=== PATIENT | male | born 1980 | race Caucasian/White ===

== ENCOUNTER 2017-05-07 22:36 | Emergency (ER) | payer MEDICAID ==
[~2017-05-07] VITALS: Ht 182.9 cm; Wt 84.8 kg
[~2017-05-07 22:36] MED LIST: KEFLEX 500MG.500 MG PO; KEFLEX500 M1 PO; SEPTRA DS 800 M1 TAB PO
--- OUTSIDE RECORDS SUMMARY | 2017-05-07 22:54 | External Medical Summary Rpt | CCD ---
Author Author , ENOC STUBBS Address Unknown Phone [email or web address] Team Providers Care Communication Analyst Name Role Phone VAUGHAN ALL, VAUGHAN ALL Unavailable Unavailable [facility], Unavailable Unavailable [facility] DEPT FOR PUBLIC HLTH, Unavailable Unavailable [facility] FOR PUBLIC [facility]PT FOR SOCIAL SR[facility], Unavailable Unavailable DE[facility] FOR SOCIAL [facility] NELSON DEAN Unavailable Unavailable [facility] Unavailable Unavailable [facility] Radha Damon MD, Unavailable Unavailable Radha Damon MD [facility] SALESPERSON Unavailable Unavailable [facility] BURIAL NEEDS SALESPERSON [facility], Unavailable Unavailable PLLC, [facility] Unavailable Unavailable SE, [facility] ALLIED Unavailable Unavailable [facility], [facility] RENUSCH JUDE, RENUSCH Unavailable Unavailable JUDE Purpose Continuity of Care Document - 05-30-2009 through 2016 Problems Code Diagnosis DOS Provider Status Z681 BODY MASS 02-09-2017 DEPT FOR INDEX 19.9 PUBLIC HLTH OR LESS ADULT [id number] SUPERFICIAL 05-05-2016 APRIL FB RT RING PHYSICIANS, FINGER PLLC INITIAL 7295 PAIN IN 03-02-2015 [place] SOFT MEDICAL TISSUES OF IMAGING ASS LIMB 45160 SPRAIN AND 03-02-2015 APRIL STRAIN OF PHYSICIANS, UNSPECIFIED PLLC SITE OF HAND 9594 INJURY 03-02-2015 [place] OTHER AND MEDICAL UNSPECIFIED IMAGING ASS HAND EXCEPT FINGER V154 PERS HX 11-09-2014 DEPT FOR PSYCHOLOGIC PUBLIC HLTH AL TRAUMA PRS [facility] 61004 11-06-2014 [place] ALLIED [facility] 881.00 881.00 OPEN 12-12-2012 Tong WOUND OF [facility] E849.0 E849.0 12-12-2012 Tong ACCIDENT IN [facility] E917.9 E917.9 12-12-2012 Tong STRUCK BY [facility] NEC V06.5 V06.5 12-12-[address]ETANUS-DIP [facility] [TD][DT] Allergies, Adverse Reactions, Alerts Type Allergy to substance Adverse Reaction to Substance Substance Reaction Severity NO KNOWN ALLERGIES Unknown Unknown Medications Na ND Rx Da Fi Fi Am Da Di Ph RX Ph St me C No te ll ll ou ys ag ar # ys at rm s nt no ma ic us Or Da si cy ia de te s n re d AD 49 06 0 No AC 28 -0 EL 10 3- Lo 40 20 ng TD 01 13 er AP 0 Ac ti AL ve CE 62 06 0 No PH 75 -0 AL 60 3- Lo EX 29 20 ng IN 48 13 er 8 50 Ac 0 ti MG ve CA PS UL E MORAN 51 06 0 No LF 07 -0 AM 90 3- Lo ET 12 20 ng HO 82 13 er XA 0 ZO Ac LE ti -T ve MP DS TA BL ET TR 00 06 0 No AM 09 -0 AD 30 3- Lo OL 05 20 ng 80 13 er 50 1H MG Ac ti TA ve BL ET TA KE HO ME 00 11 11 [address] Ac 59 -1 -1 .0 YS 03 PE ti 10 1- 9- 00 25 HE ve 38 20 20 LL 3 NS 70 09 09 E 5 OB DO /G UG YN LA S FA KD MA MD LY HE AL TH Vital Signs 12-12-2012 22:52 Name Value Interpretat Reference Comment ion Range BP 77 mm[Hg] Diastolic BP Systolic 131 mm[Hg] Heart 84 /min Rate/Pulse O2% 98 % Respiratory 16 /min Rate 12-12-2012 22:46 Name Value Interpretat Reference Comment ion Range BP 81 mm[Hg] Diastolic BP Systolic 125 mm[Hg] Heart 99 /min Rate/Pulse O2% 97 % Respiratory 20 /min Rate Procedures Procedure DOS Code Location Performer Comment RADEX 56346 [place] VAUGHAN ALL HAND 5 MEDICAL MINIMUM 3 IMAGING VIEWS ASS NONEMERG A0120 [place] [facility] TRNSPRT: 5 ALLIED KUSH D [facility] COMSERVIC COM SE MTN ES AREA/OTH SYS NONEMERG A0120 [place] TRNSPRT: 5 ALLIED K[facility] D MINI-BUS COMSERVIC COM SE MTN ES AREA/OTH SYS NONEMERG A0120 [place] TRNSPRT: 5 ALLIED K[facility] D MINI-BUS COMSERVIC COM SE MTN ES AREA/OTH SYS NONEMERG A0120 [place] TRNSPRT: 5 ALLIED KUSH D MINI-BUS COMSERVIC COM SE MTN ES AREA/OTH SYS NONEMERG A0120 [place] TRNSPRT: 5 ALLIED KUSH D MINI-BUS COMSERVIC COM SE MTN ES AREA/OTH SYS NONEMERG A0120 [place] TRNSPRT: 5 ALLIED KUSH D MINI-BUS COMSERVIC COM SE MTN ES AREA/OTH SYS NONEMERG A0120 [place] TRNSPRT: 5 ALLIED KUSH D MINI-BUS COMSERVIC COM SE MTN ES AREA/OTH SYS NONEMERG A0120 [place] TRNSPRT: 5 ALLIED KUSH D MINI-BUS COMSERVIC COM SE MTN ES AREA/OTH SYS NONEMERG A0120 [place] TRNSPRT: 5 ALLIED KUSH D MINI-BUS COMSERVIC COM SE MTN ES AREA/OTH SYS NONEMERG A0120 [place] TRNSPRT: 4 ALLIED KUSH D MINI-BUS COMSERVIC COM SE MTN ES AREA/OTH SYS NONEMERG A0120 [place] TRNSPRT: 4 ALLIED KSUH D MINI-BUS COMSERVIC COM SE MTN ES AREA/OTH SYS NONEMERG A0120 [place] TRNSPRT: 4 ALLIED KUSH D MINI-BUS COMSERVIC COM SE MTN ES AREA/OTH SYS NONEMERG A0120 [place] TRNSPRT: 4 ALLIED KUSH D MINI-BUS COMSERVIC COM SE MTN ES AREA/OTH SYS NONEMERG A0120 [place] TRNSPRT: 4 ALLIED KUSH D MINI-BUS COMSERVIC COM SE MTN ES AREA/OTH SYS NONEMERG A0120 [place] TRNSPRT: 4 ALLIED KUSH D MINI-BUS COMSERVIC COM SE MTN ES AREA/OTH SYS NONEMERG A0120 [place] TRNSPRT: 4 ALLIED KUSH D MINI-BUS COMSERVIC COM SE MTN ES AREA/OTH SYS NONEMERG A0120 [place] TRNSPRT: 4 ALLIED KUSH D MINI-BUS COMSERVIC COM SE MTN ES AREA/OTH SYS NONEMERG A0120 [place] TRNSPRT: 4 ALLIED KUSH D MINI-BUS COMSERVIC COM SE MTN ES AREA/OTH SYS NONEMERG A0120 [place] TRNSPRT: 4 ALLIED KUSH D MINI-BUS COMSERVIC COM SE MTN ES AREA/OTH SYS NONEMERG A0120 [place] TRNSPRT: 4 ALLIED KUSH D MINI-BUS COMSERVIC COM SE MTN ES AREA/OTH SYS NONEMERG A0120 [place] TRNSPRT: 4 ALLIED KUSH D MINI-BUS COMSERVIC COM SE MTN ES AREA/OTH SYS NONEMERG A0120 [place] TRNSPRT: 4 ALLIED KUSH D MINI-BUS COMSERVIC COM SE MTN ES AREA/OTH SYS NONEMERG A0120 [place] TRNSPRT: 4 ALLIED KUSH D MINI-BUS COMSERVIC COM SE MTN ES AREA/OTH SYS NONEMERG A0120 [place] TRNSPRT: 4 ALLIED KUSH D MINI-BUS COMSERVIC COM SE MTN ES AREA/OTH SYS NONEMERG A0120 [place] TRNSPRT: 4 ALLIED KUSH D MINI-BUS COMSERVIC COM SE MTN ES AREA/OTH SYS NONEMERG A0120 [place] [facility] TRNSPRT: 4 ALLIED KUSH D MINI-BUS COMSERVIC COM SE MTN ES AREA/OTH SYS NONEMERG A0120 [place] TRNSPRT: 4 ALLIED KUSH D MINI-BUS COMSERVIC COM SE MTN ES AREA/OTH SYS NONEMERG A0120 [place] TRNSPRT: 4 ALLIED KUSH D MINI-BUS COMSERVIC COM SE MTN ES AREA/OTH SYS NONEMERG A0120 [place] [facility] TRNSPRT: 4 ALLIED ALLIED MINI-BUS COMSERVIC COMSERVIC MTN ES ES AREA/OTH SYS NONEMERG A0120 [place] TRNSPRT: 4 ALLIED ALLIED MINI-BUS COMSERVIC COMSERVIC MTN ES ES AREA/OTH SYS NONEMERG A0120 [place] TRNSPRT: 4 ALLIED ALLIED MINI-BUS COMSERVIC COMSERVIC MTN ES ES AREA/OTH SYS NONEMERG A0120 [place] TRNSPRT: 4 ALLIED ALLIED MINI-BUS COMSERVIC COMSERVIC MTN ES ES AREA/OTH SYS NONEMERG A0120 [place] [facility] TRNSPRT: 4 ALLIED ALLIED MINI-BUS COMSERVIC COMSERVIC MTN ES ES AREA/OTH SYS NONEMERG A0120 [place] [facility] TRNSPRT: 4 ALLIED ALLIED MINI-BUS COMSERVIC COMSERVIC MTN ES ES AREA/OTH SYS NONEMERG A0120 [place] [facility] TRNSPRT: 4 ALLIED ALLIED MIN[facility]-BUS COMSERVIC COMSERVIC MTN ES ES AREA/OTH SYS NONEMERG A0120 [place] [facility] TRNSPRT: 3 ALLIED ALLIED MINI-BUS COMSERVIC COMSERVIC MTN ES ES AREA/OTH SYS NONEMERG A0120 [place] [facility] TRNSPRT: 3 ALLIED ALLIED MINI-BUS COMSERVIC COMSERVIC MTN ES ES AREA/OTH SYS NONEMERG A0120 [place] TRNSPRT: 3 ALLIED ALLIED MINI-BUS COMSERVIC COMSERVIC MTN ES ES AREA/OTH SYS NONEMERG A0120 [place] TRNSPRT: 3 ALLIED ALLIED MINI-BUS COMSERVIC COMSERVIC MTN ES ES AREA/OTH SYS NONEMERG A0120 [place] TRNSPRT: 3 ALLIED ALLIED MINI-BUS COMSERVIC COMSERVIC MTN ES ES AREA/OTH SYS NONEMERG A0120 [place] TRNSPRT: 3 ALLIED ALLIED MINI-BUS COMSERVIC COMSERVIC MTN ES ES AREA/OTH SYS NONEMERG A0120 [place] TRNSPRT: 3 ALLIED ALLIED MINI-BUS COMSERVIC COMSERVIC MTN ES ES AREA/OTH SYS NONEMERG A0120 [place] TRNSPRT: 3 ALLIED ALLIED MINI-BUS COMSERVIC COMSERVIC MTN ES ES AREA/OTH SYS NONEMERG A0120 [place] TRNSPRT: 3 ALLIED ALLIED MINI-BUS COMSERVIC COMSERVIC MTN ES ES AREA/OTH SYS NONEMERG A0120 [place] TRNSPRT: 3 ALLIED ALLIED MINI-BUS COMSERVIC COMSERVIC MTN ES ES AREA/OTH SYS NONEMERG A0120 [place] TRNSPRT: 3 ALLIED ALLIED MINI-BUS COMSERVIC COMSERVIC MTN ES ES AREA/OTH SYS NONEMERG A0120 [place] TRNSPRT: 3 ALLIED ALLIED MINI-BUS COMSERVIC COMSERVIC MTN ES ES AREA/OTH SYS NONEMERG A0120 [place] TRNSPRT: 3 ALLIED ALLIED MINI-BUS COMSERVIC COMSERVIC MTN ES ES AREA/OTH SYS NONEMERG A0120 [place] TRNSPRT: 3 ALLIED ALLIED MINI-BUS COMSERVIC COMSERVIC MTN ES ES AREA/OTH SYS NONEMERG A0120 [place] TRNSPRT: 3 ALLIED ALLIED MINI-BUS COMSERVIC COMSERVIC MTN ES ES AREA/OTH SYS NONEMERG A0120 [place] TRNSPRT: 3 ALLIED ALLIED MINI-BUS COMSERVIC COMSERVIC MTN ES ES AREA/OTH SYS NONEMERG A0120 [place] TRNSPRT: 3 ALLIED ALLIED MINI-BUS COMSERVIC COMSERVIC MTN ES ES AREA/OTH SYS NONEMERG A0120 [place] TRNSPRT: 3 ALLIED ALLIED MINI-BUS COMSERVIC COMSERVIC MTN ES ES AREA/OTH SYS NONEMERG A0120 [place] TRNSPRT: 3 ALLIED ALLIED MINI-BUS COMSERVIC COMSERVIC MTN ES ES AREA/OTH SYS NONEMERG A0120 [place] TRNSPRT: 3 ALLIED ALLIED MINI-BUS COMSERVIC COMSERVIC MTN ES ES AREA/OTH SYS NONEMERG A0120 [place] TRNSPRT: 3 ALLIED ALLIED MINI-BUS COMSERVIC COMSERVIC MTN ES ES AREA/OTH SYS NONEMERG A0120 [place] TRNSPRT: 3 ALLIED ALLIED MINI-BUS COMSERVIC COMSERVIC MTN ES ES AREA/OTH SYS NONEMERGE A0100 [place] [facility] NCY 3 ALLIED ALLIED TRANSPORT COMSERVIC COMSERVIC ATION; ES ES TAXI NONEMERGE A0100 [place] NCY 3 ALLIED ALLIED TRANSPORT COMSERVIC COMSERVIC ATION; ES ES TAXI NONEMERG A0120 [place] TRNSPRT: 3 ALLIED ALLIED MINI-BUS COMSERVIC COMSERVIC MTN ES ES AREA/OTH SYS NONEMERG A0120 [place] TRNSPRT: 2 ALLIED ALLIED MINI-BUS COMSERVIC COMSERVIC MTN ES ES AREA/OTH SYS NONEMERG A0120 [place] TRNSPRT: 2 ALLIED ALLIED MINI-BUS COMSERVIC COMSERVIC MTN ES ES AREA/OTH SYS NONEMERG A0120 [place] TRNSPRT: 2 ALLIED ALLIED MINI-BUS COMSERVIC COMSERVIC MTN ES ES AREA/OTH SYS NONEMERG A0120 [place] TRNSPRT: 2 ALLIED ALLIED MINI-BUS COMSERVIC COMSERVIC MTN ES ES AREA/OTH SYS NONEMERGE A0100 [place] NCY 2 ALLIED ALLIED TRANSPORT COMSERVIC COMSERVIC ATION; ES ES TAXI NONEMERG A0120 [place] TRNSPRT: 2 ALLIED ALLIED MINI-BUS COMSERVIC COMSERVIC MTN ES ES AREA/OTH SYS NONEMERGE A0100 [place] NCY 2 ALLIED ALLIED TRANSPORT COMSERVIC COMSERVIC ATION; ES ES TAXI NONEMERGE A0100 [place] NCY 2 ALLIED ALLIED TRANSPORT COMSERVIC COMSERVIC ATION; ES ES TAXI NONEMERG A0120 [place] [facility] TRNSPRT: 2 ALLIED ALLIED MINI-BUS COMSERVIC COMSERVIC MTN ES ES AREA/OTH SYS NONEMERG A0120 [place] TRNSPRT: 2 ALLIED ALLIED MINI-BUS COMSERVIC COMSERVIC MTN ES ES AREA/OTH SYS NONEMERG A0120 [place] TRNSPRT: 2 ALLIED ALLIED MINI-BUS COMSERVIC COMSERVIC MTN ES ES AREA/OTH SYS NONEMERG A0120 [place] TRNSPRT: 2 ALLIED ALLIED MINI-BUS COMSERVIC COMSERVIC MTN ES ES AREA/OTH SYS NONEMERG A0120 [place] TRNSPRT: 2 ALLIED ALLIED MINI-BUS COMSERVIC COMSERVIC MTN ES ES AREA/OTH SYS NONEMERG A0120 [place] TRNSPRT: 2 ALLIED ALLIED MINI-BUS COMSERVIC COMSERVIC MTN ES ES AREA/OTH SYS NONEMERGE A0100 [place] [facility] NCY 2 ALLIED ALLIED TRANSPORT COMSERVIC COMSERVIC ATION; ES ES TAXI NONEMERG A0120 [place] [facility] TRNSPRT: 2 ALLIED ALLIED MINI-BUS COMSERVIC COMSERVIC MTN ES ES AREA/OTH SYS NONEMERGE A0100 [place] [facility] NCY 2 ALLIED ALLIED TRANSPORT COMSERVIC COMSERVIC ATION; ES ES TAXI NONEMERG A0120 [place] TRNSPRT: 2 ALLIED ALLIED MINI-BUS COMSERVIC COMSERVIC MTN ES ES AREA/OTH SYS NONEMERG A0120 [place] TRNSPRT: 1 ALLIED KUSH D MINI-BUS COMSERVIC COM SE MTN ES AREA/OTH SYS NONEMERGE A0100 [place] JONO NCY 1 ALLIED MEDIC CAB TRANSPORT COMSERVIC ATION; ES TAXI NONEMERG A0120 [place] TRNSPRT: 1 ALLIED KUSH D MINI-BUS COMSERVIC COM SE MTN ES AREA/OTH SYS NONEMERG A0120 [place] TRNSPRT: 1 ALLIED KUSH D MINI-BUS COMSERVIC COM SE MTN ES AREA/OTH SYS NONEMERG A0120 [place] TRNSPRT: 1 ALLIED KUSH D MINI-BUS COMSERVIC COM SE MTN ES AREA/OTH SYS NONEMERGE A0100 [place] JONO NCY 1 ALLIED MEDIC CAB TRANSPORT COMSERVIC ATION; ES TAXI NONEMERG A0120 [place] TRNSPRT: 1 ALLIED KUSH D MINI-BUS COMSERVIC COM SE MTN ES AREA/OTH SYS NONEMERGE A0100 [place] JONO NCY 1 ALLIED MEDIC CAB TRANSPORT COMSERVIC ATION; ES TAXI NONEMERG A0120 [place] TRNSPRT: 1 ALLIED KUSH D MINI-BUS COMSERVIC COM SE MTN ES AREA/OTH SYS NONEMERG A0120 [place] TRNSPRT: 1 ALLIED KUSH D MINI-BUS COMSERVIC COM SE MTN ES AREA/OTH SYS NONEMERG A0120 [place] TRNSPRT: 1 ALLIED KUSH D MINI-BUS COMSERVIC COM SE MTN ES AREA/OTH SYS NONEMERG A0120 [place] TRNSPRT: 1 ALLIED K[facility] D MINI-BUS COMSERVIC COM SE MTN ES AREA/OTH SYS NONEMERG A0120 [place] TRNSPRT: 1 ALLIED KUSH D MINI-BUS COMSERVIC COM SE MTN ES AREA/OTH SYS NONEMERGE A0100 [place] JONO NCY 1 ALLIED MEDIC CAB TRANSPORT COMSERVIC ATION; ES TAXI NONEMERG A0120 [place] TRNSPRT: 1 ALLIED KUSH D MINI-BUS COMSERVIC COM SE MTN ES AREA/OTH SYS NONEMERG A0120 [place] TRNSPRT: 1 ALLIED KUSH D MINI-BUS COMSERVIC COM SE MTN ES AREA/OTH SYS NONEMERG A0120 [place] TRNSPRT: 1 ALLIED KUSH D MINI-BUS COMSERVIC COM SE MTN ES AREA/OTH SYS NONEMERG A0120 [place] TRNSPRT: 1 ALLIED KUSH D MINI-BUS COMSERVIC COM SE MTN ES AREA/OTH SYS NONEMERG A0120 [place] TRNSPRT: 1 ALLIED KUSH D MINI-BUS COMSERVIC COM SE MTN ES AREA/OTH SYS NONEMERGE A0100 [place] JONO NCY 1 ALLIED MEDIC CAB TRANSPORT COMSERVIC ATION; ES TAXI NONEMERG A0120 [place] TRNSPRT: 1 ALLIED KUSH D MINI-BUS COMSERVIC COM SE MTN ES AREA/OTH SYS NONEMERG A0120 [place] TRNSPRT: 1 ALLIED KUSH D MINI-BUS COMSERVIC COM SE MTN ES AREA/OTH SYS NONEMERG A0120 [place] TRNSPRT: 1 ALLIED KUSH D MINI-BUS COMSERVIC COM SE MTN ES AREA/OTH SYS NONEMERG A0120 [place] TRNSPRT: 1 ALLIED KUSH D MINI-BUS COMSERVIC COM SE MTN ES AREA/OTH SYS NONEMERG A0120 [place] TRNSPRT: 1 ALLIED KUSH D MINI-BUS COMSERVIC COM SE MTN ES AREA/OTH SYS NONEMERGE A0100 [place] JONO NCY 1 ALLIED MEDIC CAB TRANSPORT COMSERVIC ATION; ES TAXI NONEMERGE A0100 [place] JONO NCY 1 ALLIED MEDIC CAB TRANSPORT COMSERVIC ATION; ES TAXI NONEMERGE A0100 [place] JONO NCY 1 ALLIED MEDIC CAB TRANSPORT COMSERVIC ATION; ES TAXI NONEMERG A0120 [place] TRNSPRT: 1 ALLIED KUSH D MINI-BUS COMSERVIC COM SE MTN ES AREA/OTH SYS NONEMERG A0120 [place] TRNSPRT: 1 ALLIED K[facility] D MINI-BUS COMSERVIC COM SE MTN ES AREA/OTH SYS NONEMERGE A0100 [place] JONO NCY 1 ALLIED MEDIC CAB TRANSPORT COMSERVIC ATION; ES TAXI NONEMERGE A0100 [place] JONO NCY 1 ALLIED MEDIC CAB TRANSPORT COMSERVIC ATION; ES TAXI NONEMERG A0120 [place] [facility] TRNSPRT: 1 ALLIED KUSH D MINI-BUS COMSERVIC COM SE MTN ES AREA/OTH SYS NONEMERG A0120 [place] TRNSPRT: 1 ALLIED KUSH D MINI-BUS COMSERVIC COM SE MTN ES AREA/OTH SYS NONEMERG A0120 [place] TRNSPRT: 1 ALLIED KUSH D MINI-BUS COMSERVIC COM SE MTN ES AREA/OTH SYS NONEMERG A0120 [place] TRNSPRT: 1 ALLIED KUSH D MINI-BUS COMSERVIC COM SE MTN ES AREA/OTH SYS NONEMERG A0120 [place] TRNSPRT: 1 ALLIED KUSH D MINI-BUS COMSERVIC COM SE MTN ES AREA/OTH SYS NONEMERG A0120 [place] TRNSPRT: 1 ALLIED KUSH D MINI-BUS COMSERVIC COM SE MTN ES AREA/OTH SYS NONEMERGE A0100 [place] JONO NCY 1 ALLIED MEDIC CAB TRANSPORT COMSERVIC ATION; ES TAXI NONEMERG A0120 [place] TRNSPRT: 1 ALLIED KUSH D MINI-BUS COMSERVIC COM SE MTN ES AREA/OTH SYS NONEMERG A0120 [place] TRNSPRT: 1 ALLIED KUSH D MINI-BUS COMSERVIC COM SE MTN ES AREA/OTH SYS NONEMERG A0120 [place] TRNSPRT: 1 ALLIED KUSH D MINI-BUS COMSERVIC COM SE MTN ES AREA/OTH SYS NONEMERG A0120 [place] TRNSPRT: 1 ALLIED KUSH D MINI-BUS COMSERVIC COM SE MTN ES AREA/OTH SYS NONEMERG A0120 [place] TRNSPRT: 0 ALLIED KUSH D MINI-BUS COMSERVIC COM SE MTN ES AREA/OTH SYS NONEMERG A0120 [place] TRNSPRT: 0 ALLIED KUSH D MINI-BUS COMSERVIC COM SE MTN ES AREA/OTH SYS NONEMERG A0120 [place] TRNSPRT: 0 ALLIED KUSH D MINI-BUS COMSERVIC COM SE MTN ES AREA/OTH SYS NONEMERG A0120 [place] TRNSPRT: 0 ALLIED KUSH D MINI-BUS COMSERVIC COM SE MTN ES AREA/OTH SYS NONEMERG A0120 [place] TRNSPRT: 0 ALLIED KUSH D MINI-BUS COMSERVIC COM SE MTN ES AREA/OTH SYS NONEMERG A0120 [place] TRNSPRT: 0 ALLIED KUSH D MINI-BUS COMSERVIC COM SE MTN ES AREA/OTH SYS NONEMERG A0120 [place] TRNSPRT: 0 ALLIED KUSH D MINI-BUS COMSERVIC COM SE MTN ES AREA/OTH SYS NONEMERGE A0100 [place] JONO NCY 0 ALLIED MEDIC CAB TRANSPORT COMSERVIC ATION; ES TAXI Encounters Encounter Start End Date Code Location Performer Type Date EMERGENCY 79995 APRIL HART 6 6 PHYSICIAN RUTH CROWLEY T VISIT MODERATE SEVERITY EMERGENCY 82780 APRIL DAMON 5 5 PHYSICIAN RUTH SCOTT T VISIT MODERATE SEVERITY Emergency LISANDRO Damon MD (ER) 3 22:15 3 22:55 [facility]
--- OUTSIDE RECORDS SUMMARY | 2017-05-07 22:54 | External Medical Summary Rpt | CCD ---
Author Author , ENOC STUBBS Address Unknown Phone [email or web address] Care Team Providers Care Payroll Technician Name Role Phone VAUGHAN ALL, VAUGHAN ALL Unavailable Unavailable [facility], Unavailable Unavailable [facility] DEPT FOR PUBLIC HLTH, Unavailable Unavailable DEPT FOR PUBLIC HLTH DEPT FOR SOCIAL SRVS, Unavailable Unavailable [facility]PT FOR SOCIAL [facility] NELSON DEAN Unavailable Unavailable [facility] Unavailable Unavailable [facility] Radha Damon MD, Unavailable Unavailable Radha Daomn MD [place] [facility]LE[facility] EQUIPMENT OPERATOR Unavailable Unavailable [facility] TELEVISION EQUIPMENT OPERATOR [facility], Unavailable Unavailable PLL[facility], [facility] Unavailable Unavailable SE, [facility] ALL[facility] Unavailable Unavailable [facility], [facility] RENUSCH JUDE, RENUSCH Unavailable Unavailable JUDE Purpose Continuity of Care Document - 05-30-2009 through 2016 Problems Code Diagnosis DOS Provider Status Z681 BODY MASS 02-09-2017 DEPT FOR INDEX 19.9 PUBLIC HLTH OR LESS ADULT [id number] SUPERFICIAL 05-05-2016 APRIL FB RT RING PHYSICIANS, FINGER PLLC INITIAL 7295 PAIN IN 03-02-2015 [facility] SOFT MEDICAL TISSUES OF IMAGING ASS LIMB 31049 SPRAIN AND 03-02-2015 APRIL STRAIN OF PHYSICIANS, UNSPECIFIED PLLC SITE OF HAND 9594 INJURY 03-02-2015 [facility] OTHER AND MEDICAL UNSPECIFIED IMAGING ASS HAND EXCEPT FINGER V154 PERS HX 11-09-2014 DEPT FOR PSYCHOLOGIC PUBLIC HLTH AL TRAUMA PRS [facility] 51133 11-06-2014 [place] ALL[facility] 881.00 881.00 OPEN 12-12-2012 Tong WOUND OF [facility] E849.0 E849.0 12-12-2012 Tong ACCIDENT IN [facility] E917.9 E917.9 12-12-2012 Tong STRUCK BY [facility] NEC V06.5 V06.5 12-12-2012 Tong TETANUS-DIP [facility] [TD][DT] Allergies, Adverse Reactions, Alerts Type [...] /G UG YN LA S FA KD MO MD LY HE AL TH Vital Signs [...] Procedure DOS Code Location Performer Comment RADEX 77314 MAINE VAUGHAN ALL HAND 5 MEDICAL MINIMUM 3 [...] NONEMERG A0120 [place] TRNSPRT: 4 ALLIED [facility] D MINI-BUS COMSERVIC COM SE MTN ES [...] NONEMERG A0120 [place] TRNSPRT: 1 ALLIED [facility] D MINI-BUS COMSERVIC COM SE MTN ES [...] Date Code Location Performer Type Date EMERGENCY 71784 APRIL HART 6 6 PHYSICIAN RUTH CROWLEY T VISIT MODERATE SEVERITY EMERGENCY 31820 APRIL DAMON 5 5 PHYSICIAN RUTH SCOTT T VISIT MODERATE SEVERITY Emergency LISANDRO Damon MD (ER) 3 22:15 3 22:55 [facility]
--- OUTSIDE RECORDS SUMMARY | 2017-05-07 22:55 | External Medical Summary Rpt | CCD ---
Author Author , ENOC STUBBS Address Unknown Phone .[facility] Care Team Providers Care Dough Molder Name Role Phone VAUGHAN ALL, VAUGHAN ALL Unavailable Unavailable [facility], Unavailable [facility]available [facility] DEPT FOR PUBLIC HLTH, Unavailable Unavailable DEPT FOR PUBLIC HLTH DEPT FOR SOCIAL SRVS, Unavailable Unavailable [facility]IAL [facility] NELSON ROBYN, NELSON Unavailable Unavailable [facility] Unavailable Unavailable [facility] [employer] PULLER Unavailable Unavailable [facility], [facility], Unavailable [facility]available [facility], [facility] Unavailable Unavailable SE, [facility] Unavailable Unavailable [facility], [facility] RENUSCH JUDE, RENUSCH Unavailable Unavailable JUDE Purpose Continuity of Care Document - 05-30-2009 through 2016 Problems Code Diagnosis DOS Provider Status Z681 BODY MASS 02-09-2017 DEPT FOR INDEX 19.9 PUBLIC HLTH OR LESS ADULT [id number] SUPERFICIAL 05-05-2016 [facility] FB RT RING [facility], FINGER [facility] INITIAL 7295 PAIN IN 03-02-2015 [place] TISSU[facility] OF IMAGING ASS LIMB 36261 SPRAIN AND 03-02-2015 [facility] STRAIN OF PHYSIC[facility]ANS, UNSPECIFIED PLLC SITE OF HAND 9594 INJURY 03-02-2015 [place] OTHER AND MEDICAL UNSPECIFIED IMAGING ASS HAND EXCEPT FINGER V154 PERS HX 11-09-2014 [facility] AL TRAUMA PRS [facility] 65421 11-06-2014 [facility] Medications Na ND Rx Da Fi Fi Am Da Di Ph RX Ph St me C No te ll ll ou ys ag ar # ys at rm s nt no ma ic us Or Da si cy ia de te s n re d 00 11 11 [address] Ac 59 -1 -1 .0 YS 03 PE ti 10 9- 00 25 HE ve 38 20 20 LL 3 NS 70 09 09 E 5 OB DO /G UG YN LA S FA KD ME LY HE AL TH Procedures Procedure DOS Code Location Performer Comment RADEX 12017 [place] VAU[facility]AN ALL HAND 5 MEDICAL MINIMUM 3 [...] NONEMERG A0120 [facility] PEN[facility]LE TRNSPRT: 5 ALLIED [facility] SE MTN ES [...] Date Code Location Performer Type Date EMERGENCY 57540 APRIL HEBERT 6 6 PHYSICIAN [place] VISIT MODERATE SEVERITY EMERGENCY 46571 APRIL DAMON 5 5 PHYSICIAN RUTH SCOTT T VISIT MODERATE SEVERITY
--- OUTSIDE RECORDS SUMMARY | 2017-05-07 22:55 | External Medical Summary Rpt | CCD ---
Author Author , [employer] STUBBS Address Unknown Phone [email or web address] [email or web address] Care Account [facility] Name Role Phone VAUGHAN ALL, VAUGHAN ALL Unavailable Unavailable [facility], Unavailable Unavailable [facility], Unavailable Unavailable [facility], Unavailable Unavailable [facility] NELSON ROBYN, NELSON Unavailable Unavailable [facility] Un[facility] [place] EXTERNAL RELATIONS DIRECTOR Unavailable Unavailable [facility], [place] EXTERNAL RELATIONS DIRECTOR [facility], Unavailable [facility]available [facility], [facility] Unavailable Unavailable SE, [facility] Unavailable Unavailable [facility], [facility] RENUSCH JUDE, RENUSCH Unavailable Unavailable JUDE Purpose Continuity of Care Document - 05-30-2009 through 2016 Problems Code Diagnosis DOS Provider Status Z681 BODY MASS 02-09-2017 DEPT FOR INDEX 19.9 [facility] OR LESS ADULT [id number] SUPERFICIAL 05-05-2016 APR[facility] FB RT RING [facility], FINGER PLL[facility] INITIAL 7295 PAIN IN 03-02-2015 [place] [facility] TISSUES OF IMAGING ASS LIMB 71815 SPRAIN AND 03-02-2015 APR[facility] STRAIN OF PHYSICIANS, UNSPECIFIED PLLC SITE OF HAND 9594 INJURY 03-02-2015 [place] OTHER AND MEDICAL UNSPECIFIED [facility] HAND EXCEPT FINGER V154 PERS HX 11-09-2014 [facility] AL TRAUMA PRS [facility] 56304 11-06-2014 [facility] Medications Na ND [...] /G UG YN LA S FA KD CT LY HE AL TH Procedures Procedure DOS Code Location Performer Comment RADEX 39776 [place] [facility]AU[facility]AN ALL HAND 5 MEDICAL MINIMUM 3 [...] NONEMERG A0120 [facility] TRNSPRT: 1 ALLIED [facility] SE [...] Date Code Location Performer Type Date EMERGENCY 54029 APRIL HEBERT 6 6 PHYSICIAN RUTH CROWLEY VISIT MODERATE SEVERITY EMERGENCY 05091 APRIL DAMON 5 5 PHYSICIAN RUTH SCOTT T VISIT MODERATE SEVERITY
--- OUTSIDE RECORDS SUMMARY | 2017-05-07 22:56 | External Medical Summary Rpt | CCD ---
Demographics Preferred Language Monegasque Marital Status Unknown Orthodoxy Affiliation Unknown Race Unknown Ethnic Group Unknown Author Author , ENOC STUBBS Address Unknown Phone Immunization Unable to retrieve immunization data due to connection failure with Immunization Registry. Please try again later.
--- OUTSIDE RECORDS SUMMARY | 2017-05-07 22:56 | External Medical Summary Rpt | CCD ---
Demographics Preferred Language Paraguayan Marital Status Unknown Roman Catholic Affiliation Unknown Race Unknown Ethnic Group Unknown Author Author , [employer]OC STUBBS Address Unknown Phone Immunization Unable to retrieve immunization data due to connection failure with Immunization Registry. Please try again later.
--- OUTSIDE RECORDS SUMMARY | 2017-05-07 22:56 | External Medical Summary Rpt ---
Author Author ENOC Watts, [employer] Organization [employer] Address Unknown Phone Unavailable
--- NOTE | 2017-05-07 23:15 | Emergency Room Report ---
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 N Clinical Suspician of Infection? N Mental Status: 1 - Regular (Normal Baseline) Sepsis Risk:Possible Sepsis Risk Have you (or family members/close friends) recently traveled outside the [place]? N If Yes, where/when: Have you had exposure to infectious disease within the past month? N TB? Other? Specify: Source patient, RN notes reviewed, family, old records Exam Limitations no limitations Comment fb sensation rt eye which occurred this afternoon Cardiac Chest Pain Chest pain indicative of cardiac No Timing/Duration this evening Severity moderate ALLERGIES Coded Allergies: No Known Allergies (05/05/16) History Medical History General CAD? No Angina: No [place]: No Hypertension? No Hyperlipidemia? No CHF? No DVT? No PE? No COPD? No Asthma? No Anemia? No GERD? No Gastric ulcers? No GI Bleed? No Hernia? No Thyroid Problems? No Hypothyroidism? No CVA? No Seizures? No Diabetes? No Renal Insuffiency? No End Stage Renal Disease? No UTI? No Stones? No BPH? No GB Disease: No Nephritic Syndrome? No Asplenia? No Hepatitis? No Sickle Cell Disease? No Arthritis? No Migraines? No Cataracts? No Glaucoma? No MRSA? No HIV? No TB? No Anxiety? No Depression? No Cancer? No Immunization Hx DT/Tetanus 05/05/16 Surgical Hx Previous Surgery?N Social History Smoking Hx Smoker: Current Every Day Smoker Tobacco: Yes Type Cigarettes Packs/day < 1 Pack Alcohol Alcohol: No Drugs none Review of Systems All Other Systems Reviewed and Negative Constitutional denies fever Eyes see HPI, foreign body sensation, denies drainage, denies photophobia ENT denies: ear discharge, epistaxis, throat pain. Respiratory denies cough, denies shortness of breath, denies wheezing Cardiovascular denies chest pain, denies syncope Gastrointestinal denies abdominal pain, denies diarrhea, denies vomiting Genitourinary denies: dysuria, frequency, hesitancy, hematuria. Musculoskeletal denies back pain, denies joint pain, denies joint swelling, denies neck pain Skin denies rash Psychiatric/Neurological denies headache, denies seizure Physical Exam Vital Signs Vital Signs Date Time Temp Pulse Resp B/P Pulse O2 O2 Flow FiO2 Ox Delivery Rate 05/07 2239 98.1 90 20 130/78 98 - WBC >12,000 or <4,000 or 10% bands? 2 or more SIRS Criteria Met? B/P:130/78 MAP:95 Creatinine >2.0? UA output<0.5ml/kg/hr for 2 hrs? Platelet count >100,000? Lactate >2.0mmol/1? INR >1.2 or PTT > than 60 sec? Evidence of Organ Dysfunction? Provider documented clinical suspician of infection? N Sepsis Criteria Count: 2 Sepsis Risk: Possible Sepsis Risk General Appearance no apparent distress Eye Exam - right eye corneal abrasion, bilateral eye PERRL, bilateral eye EOMI Ear, Nose, Throat normal ENT inspection Neck supple Respiratory Status No: respiratory distress. 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 No Results/Orders Current Medication Orders Sig/Sandi Start time Last Medication Dose Route Stop Time Status Admin Fluorescein Sodium 1 EACH ONCE ONE 05/07 2315 DC OP 05/07 2316 Gentamicin Sulfate 0.1 DROP ONCE ONE 05/07 2315 DC OP 05/07 2316 Tetracaine HCl See Dose ONCE ONE 05/07 2315 DC Insts (1) OP 05/07 2316 Miscellaneous 0 .STK-MED ONE 05/07 2245 DC XX Dose Instructions: (1)Tetracaine HCl: INSTILL IN AFFECTED EYE(S) PER INSTRUCTIONS Procedures Eye Procedure Eye Procedure Risks/benefits discussed with pt/guardian? Yes Tetracaine Drops Administered right eye Fluorescein Stick(s) Used right eye Slit lamp exam No Antibiotic Ointment/Drps Admin right eye Departure Departure Time of Disposition 2309 Disposition DC Home or Self Care(routine) Clinical Impression Primary Impression: Corneal foreign body Qualifiers: Encounter type: initial encounter Laterality: right Qualified Code: T15.01XA - Foreign body in cornea, right eye, initial encounter Condition STABLE Referrals [facility] Patient Instructions DI for Corneal Abrasion Additional Instructions see eye center in am and use drops as directed Discharge Counseling Counseled pt/family regarding diagnosis, test results, medications/RX, follow up needs ED Critical Care Critical Care No at [id number]
--- NOTE | 2017-05-07 23:15 | Emergency Room Report ---
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 N Clinical Suspician of Infection? N Mental Status: 1 - Regular (Normal Baseline) Sepsis Risk:Possible Sepsis Risk Have you (or family members/close friends) recently traveled outside the [place]? N If Yes, where/when: Have you had exposure to infectious disease within the past month? N TB? Other? Specify: Source patient, RN notes reviewed, family, old records Exam Limitations no limitations Comment fb sensation rt eye which occurred this afternoon Cardiac Chest Pain Chest pain indicative of cardiac No Timing/Duration this evening Severity moderate ALLERGIES Coded Allergies: No Known Allergies (05/05/16) History Medical History General CAD? No Angina: No [place]: No Hypertension? No Hyperlipidemia? No CHF? No DVT? No PE? No COPD? No Asthma? No Anemia? No GERD? No Gastric ulcers? No GI Bleed? No Hernia? No Thyroid Problems? No Hypothyroidism? No CVA? No Seizures? No Diabetes? No Renal Insuffiency? No End Stage Renal Disease? No UTI? No Stones? No BPH? No GB Disease: No Nephritic Syndrome? No Asplenia? No Hepatitis? No Sickle Cell Disease? No Arthritis? No Migraines? No Cataracts? No Glaucoma? No MRSA? No HIV? No TB? No Anxiety? No Depression? No Cancer? No Immunization Hx DT/Tetanus 05/05/16 Surgical Hx Previous Surgery?N Social History Smoking Hx Smoker: Current Every Day Smoker Tobacco: Yes Type Cigarettes Packs/day < 1 Pack Alcohol Alcohol: No Drugs none Review of Systems All Other Systems Reviewed and Negative Constitutional denies fever Eyes see HPI, foreign body sensation, denies drainage, denies photophobia ENT denies: ear discharge, epistaxis, throat pain. Respiratory denies cough, denies shortness of breath, denies wheezing Cardiovascular denies chest pain, denies syncope Gastrointestinal denies abdominal pain, denies diarrhea, denies vomiting Genitourinary denies: dysuria, frequency, hesitancy, hematuria. Musculoskeletal denies back pain, denies joint pain, denies joint swelling, denies neck pain Skin denies rash Psychiatric/Neurological denies headache, denies seizure Physical Exam Vital Signs Vital Signs Date Time Temp Pulse Resp B/P Pulse O2 O2 Flow FiO2 Ox Delivery Rate 05/07 2239 98.1 90 20 130/78 98 - WBC >12,000 or <4,000 or 10% bands? 2 or more SIRS Criteria Met? B/P:130/78 MAP:95 Creatinine >2.0? UA output<0.5ml/kg/hr for 2 hrs? Platelet count >100,000? Lactate >2.0mmol/1? INR >1.2 or PTT > than 60 sec? Evidence of Organ Dysfunction? Provider documented clinical suspician of infection? N Sepsis Criteria Count: 2 Sepsis Risk: Possible Sepsis Risk General Appearance no apparent distress Eye Exam - right eye corneal abrasion, bilateral eye PERRL, bilateral eye EOMI Ear, Nose, Throat normal ENT inspection Neck supple Respiratory Status No: respiratory distress. 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 No Results/Orders Current Medication Orders Sig/Sandi Start time Last Medication Dose Route Stop Time Status Admin Fluorescein Sodium 1 EACH ONCE ONE 05/07 2315 DC OP 05/07 2316 Gentamicin Sulfate 0.1 DROP ONCE ONE 05/07 2315 DC OP 05/07 2316 Tetracaine HCl See Dose ONCE ONE 05/07 2315 DC Insts (1) OP 05/07 2316 Miscellaneous 0 .STK-MED ONE 05/07 2245 DC XX Dose Instructions: (1)Tetracaine HCl: INSTILL IN AFFECTED EYE(S) PER INSTRUCTIONS Procedures Eye Procedure Eye Procedure Risks/benefits discussed with pt/guardian? Yes Tetracaine Drops Administered right eye Fluorescein Stick(s) Used right eye Slit lamp exam No Antibiotic Ointment/Drps Admin right eye Departure Departure Time of Disposition 2309 Disposition DC Home or Self Care(routine) Clinical Impression Primary Impression: Corneal foreign body Qualifiers: Encounter type: initial encounter Laterality: right Qualified Code: T15.01XA - Foreign body in cornea, right eye, initial encounter Condition STABLE Referrals [facility] Patient Instructions DI for Corneal Abrasion Additional Instructions see eye center in am and use drops as directed Discharge Counseling Counseled pt/family regarding diagnosis, test results, medications/RX, follow up needs ED Critical Care Critical Care No at [phone]
[2017-05-07 23:22] VITALS: BP 117/79
== END 2017-05-07 23:23 | disposition home or self-care (01) ==
LOC: ER 22:36
DX: T15.01XA Foreign body in cornea, right eye, initial encounter (principal); F17.210 Nicotine dependence, cigarettes, uncomplicated